=== PATIENT | female | born 1955 | race Caucasian/White ===

== ENCOUNTER 2020-09-24 08:56 | Day surgery (SDC) | payer MEDICARE ==
[2020-09-24] VITALS (9 sets, daily range): BP systolic 124–162; BP diastolic 78–98
[~2020-09-24] VITALS: Ht 177.8 cm; Wt 53.1 kg
[2020-09-24] MEDS ORDERED: normal saline 1000ml 1,000 ML IV SCH ×2 (09:35→12:20)
[2020-09-24] MEDS ORDERED: PANT40TA54 PO (09:40)
[2020-09-24] MEDS ORDERED: MORP-92 PO (09:40)
[2020-09-24] MEDS ORDERED: ONDA-103 PO (09:40)
[2020-09-24] MEDS ORDERED: PRAV40TA3 PO (09:40)
[2020-09-24] MEDS ORDERED: CITA20TA28 PO (09:40)
[2020-09-24] MEDS ORDERED: PROC10TA10 PO (09:40)
[2020-09-24] MEDS ORDERED: CALC250T2 PO (09:48)
[2020-09-24] MEDS ORDERED: NITR0.4T48 SL (09:48)
[2020-09-24] MEDS ORDERED: TRAZ-251 PO (09:48)
[2020-09-24] MEDS ORDERED: HYDR-3972 PO (09:48)
[2020-09-24] MEDS ORDERED: MV-M1TAB19 PO (09:48)
[2020-09-24] MEDS ORDERED: SENN-173 (09:48)
[2020-09-24] MEDS ORDERED: ASPI-1265 PO (09:48)
[2020-09-24] MEDS ORDERED: TERI2.4P SUBCUT (09:48)
[2020-09-24 10:02] LABS: EOSINOPHILS # (AUTO) 0.1 X10'3 (0-0.9); EOSINOPHILS % (AUTO) 1.1 % (0-6); HEMATOCRIT 39.2 % (35.0-45.0); LYMPHOCYTES # (AUTO) 0.9 X10'3 (1.1-4.8); LYMPHOCYTES % (AUTO) 17.8 % (21-51); MEAN CORPUSCULAR HEMOGLOBIN 31.1 PG (27.0-31.0); MEAN CORPUSCULAR HGB CONC 33.2 g/dL (33.0-36.5); MEAN CORPUSCULAR VOLUME 93.8 FL (78-98); MEAN PLATELET VOLUME 8.8 FL (7.4-10.4); MONOCYTES # (AUTO) 0.3 X10'3 (0-0.9); MONOCYTES % (AUTO) 6.8 % (2-12); NEUTROPHILS # (AUTO) 3.5 X10'3 (1.8-7.7); NEUTROPHILS % (AUTO) 73.3 % (42-75); PLATELET COUNT 173 X10'3 (140-440); RED BLOOD COUNT 4.18 X10'6 (4.20-5.60); RED CELL DISTRIBUTION WIDTH 13.3 % (11.5-14.5); WHITE BLOOD COUNT 4.8 X10'3 (4.5-11.0)
[2020-09-24] MEDS ORDERED: LIDOcaine 1%/PF 5ML 10 MG/ML VIAL ONE (10:53)
[2020-09-24] MEDS ORDERED: iohexol 300 MG/1 ML 50ml polymer ONE (10:53)
[2020-09-24] MEDS ORDERED: clindamycin-Cleocin 900mg/D5W 50 ML IV ONE (10:56)
[2020-09-24] MEDS ORDERED: midazolam 1 mg/ML 2ml injection ONE ×3 (10:57→11:38)
[2020-09-24] MEDS ORDERED: diphenhydrAMINE 50 mg/ml inj ONE (10:57)
[2020-09-24] MEDS ORDERED: fentaNYL/PF 50MCG/1 ML 2ML syringe ONE ×4 (10:57→11:54)
[2020-09-24] MEDS ORDERED: morphine 4 MG/ML inj SYRINge IV PRN (12:20)
[2020-09-24] MEDS ORDERED: HYDROcodone/acetaminophen 5mg/325mg tablet PO PRN (12:20)
--- NOTE | 2020-09-24 17:11 | NUR ---
Patient was a 6/10 throughout the rest of the day, she stated she was good on pain, no pain meds requested as she stated 10/10 is normal, feels better with 6/10 resting.
== END 2020-09-24 16:35 | disposition home or self-care (01) ==
LOC: SSTAY O 08:56
PROVIDERS: ATTEND Radiology Diagnostic Radiology
DX: M80.88XA Other osteoporosis with current pathological fracture, vertebra(e), initial encounter for fracture (principal); M54.6 Pain in thoracic spine; Z72.0 Tobacco use; Z85.3 Personal history of malignant neoplasm of breast
CPT/HCPCS: 22513; 36415; 85025; 85610; 99152; 99153; C1713; J1200; J2250; J3010; Q9967; J3490

== ENCOUNTER 2022-06-20 05:36 | Day surgery (SDC) | payer MEDICARE ==
[2022-06-11 15:54] LABS: CLARITY,URINE CLEAR (Clear); COLOR,URINE YELLOW (Yellow); GLUCOSE, URINE NEGATIVE (Neg); KETONES,URINE NEGATIVE (Neg); LEUKOCYTE ESTERASE ,URINE NEGATIVE (Neg); NITRITES, URINE NEGATIVE (Neg); OCCULT BLOOD,URINE SMALL (Neg); PROTEIN,URINE NEGATIVE (Neg); UROBILINOGEN,URINE 0.2 E.U/dL (0.2-1.0)
[2022-06-11 15:58] LABS: BASOPHILS % (AUTO) 0.6 % (0-1); EOSINOPHILS # (AUTO) 0.1 X10'3 (0-0.9); EOSINOPHILS % (AUTO) 0.8 % (0-6); LYMPHOCYTES # (AUTO) 1.2 X10'3 (1.1-4.8); LYMPHOCYTES % (AUTO) 19.2 % (21-51); MEAN CORPUSCULAR HEMOGLOBIN 31.9 PG (27.0-31.0); MEAN CORPUSCULAR HGB CONC 33.9 g/dL (33.0-36.5); MEAN CORPUSCULAR VOLUME 94.3 FL (78-98); MEAN PLATELET VOLUME 8.3 FL (7.4-10.4); MONOCYTES # (AUTO) 0.3 X10'3 (0-0.9); MONOCYTES % (AUTO) 5.3 % (2-12); NEUTROPHILS # (AUTO) 4.7 X10'3 (1.8-7.7); NEUTROPHILS % (AUTO) 74.1 % (42-75); PRE OP HEMATOCRIT 38.2 % (35.0-45.0); PRE OP HEMOGLOBIN 12.9 g/dL (12.0-16.0); PRE OP PLATELET COUNT 134 X10'3 (140-440); RED BLOOD COUNT 4.05 X10'6 (4.20-5.60); RED CELL DISTRIBUTION WIDTH 13.7 % (11.5-14.5)
[2022-06-11 16:03] LABS: UA COLLECTION TYPE NON-SPECIFIED
[2022-06-11 16:04] LABS: BACTERIA,URINE FEW /HPF (Neg); RBC,URINE 0-2 /HPF (0-2); SQUAMOUS EPITHELIAL CELL,UR FEW /LPF (FEW); WBC,URINE NONE SEEN /HPF (0-4)
[2022-06-11 16:13] LABS: ALBUMIN 3.6 G/DL (3.4-5.0); ALBUMIN/GLOBULIN RATIO 1.4 (1.1-1.5); ALKALINE PHOSPHATASE 83 IU/L (46-116); BLOOD UREA NITROGEN 12 MG/DL (7-18); BUN/CREATININE RATIO 16.4 (6.6-38.0); CHLORIDE 100 MMOL/L (99-107); CREATININE 0.73 MG/DL (0.40-0.90); PRE OP ALT 17 U/L (30-65); PRE OP ANION GAP 7 (8-16); PRE OP AST 20 U/L (10-37); PRE OP BILIRUB, TOTAL 0.3 MG/DL (0.0-1.0); PRE OP GLUCOSE 78 MG/DL (70-104); PRE OP POTASSIUM 3.6 MMOL/L (3.4-5.1); PRE OP SODIUM 137 MMOL/L (135-145); TOTAL CARBON DIOXIDE 30.1 MMOL/L (24-32); TOTAL PROTEIN 6.2 G/DL (6.4-8.2); eGFR 79 ML/MIN
[~2022-06-20] VITALS: Ht 167.6 cm; Wt 44.1 kg
[2022-06-20] VITALS (7 sets, daily range): BP systolic 128–164; BP diastolic 81–96
[~2022-06-20 05:36] MED LIST: ASPI-1265 PO; CALC250T2 PO; CITA20TA28 PO; HYDR-3972 PO; MORP-92 PO; MV-M1TAB19 PO; NITR0.4T48 SL; ONDA-103 PO; PANT40TA54 PO; PRAV40TA3 PO; PROC10TA10 PO; SENN-173; SENN-25 PO; TRAZ-251 PO; VIT1CAPS46 PO; famotidine 20mg tablet PO ONE; ringers solution, lacted 1,000 ML IV SCH; vancomycin/NS 1 GM in NS 250 ML IV ONE
[2022-06-20] MEDS ORDERED: bacitracin 15gm ointment TP ONE ×2 (06:14→07:37)
[2022-06-20] MEDS ORDERED: BUPIVAcaine 0.5% inj/PF 30 ML ONE (06:14)
[2022-06-20] MEDS ORDERED: midazolam 1 mg/ML 2ml injection ONE (07:11)
[2022-06-20] MEDS ORDERED: fentaNYL/PF 50MCG/1 ML 2ML syringe ONE (07:11)
[2022-06-20] MEDS ORDERED: propofol inj 20 ML IV ONE (07:14)
[2022-06-20] MEDS ORDERED: ondansetron/PF 4mg/2ml inj IV PRN (07:25)
[2022-06-20] MEDS ORDERED: ringers solution, lacted 1,000 ML IV SCH (07:25)
[2022-06-20] MEDS ORDERED: morphine 2 MG/ML inj. syringe IV PRN (07:25)
[2022-06-20] MEDS ORDERED: meperidine/PF 25mg/ml syringe IV PRN ×3 (07:25)
[2022-06-20] MEDS ORDERED: morphine 4 MG/ML inj SYRINge IV PRN (07:25)
[2022-06-20] MEDS ORDERED: proCHLORperazine 10 MG/2 ml inj IV PRN (07:25)
[2022-06-20] MEDS ORDERED: ondansetron/PF 4mg/2ml inj ONE (07:33)
[2022-06-20] MEDS ORDERED: dexamethasone sod phosphate 4mg/ml inj. ONE (07:33)
[2022-06-20] MEDS ORDERED: BUPIVAcaine 0.5% inj/PF 30 ml vial IJ ONE (07:37)
--- NOTE | 2022-06-20 07:56 | NUR ---
Received from OR via [facility] , accompanied by Anesthesiologist MARY CARMEN and report given by Anesthesiolgist. PATIENT WITH 20G PIV IN LEFT UE RUNNING LR AT 100. DENIES PAIN. LEFT 20GPIV IN PLACE RUNNING LR AT 100. DENIES PAIN. PATIENT WITH + CAP REFILL TO TOES. Addendum: 06/20/22 at 0808 by Matthew Santos RN, RN Amended: Links added.
--- NOTE | 2022-06-20 08:36 | NUR ---
PATIENT A&OX4, DENIES PAIN, V/S WNL, SCD OFF,, RIGHT FOOTDRESSING CDI W/ POST OP SHOE. ICE AND ELEVATED RUE. I HAVE REVIEWED D/C INSTRUCTIONS WITH PATIENT and they have verbalized understanding patient d/c home with all belongings and family gave transport home. Addendum: 06/20/22 at 0844 by Matthew Santos RN, RN Amended: Links added.
== END 2022-06-20 08:36 | disposition home or self-care (01) ==
LOC: PAS 05:36
PROVIDERS: ATTEND Podiatrist Foot & Ankle Surgery
DX: M79.89 Other specified soft tissue disorders (principal); F17.200 Nicotine dependence, unspecified, uncomplicated; Z88.1 Allergy status to other antibiotic agents; Z88.2 Allergy status to sulfonamides; Z79.82 Long term (current) use of aspirin; Z79.899 Other long term (current) drug therapy; Z98.890 Other specified postprocedural states; Z90.49 Acquired absence of other specified parts of digestive tract; Z88.8 Allergy status to other drugs, medicaments and biological substances; K21.9 Gastro-esophageal reflux disease without esophagitis; M81.8 Other osteoporosis without current pathological fracture
CPT/HCPCS: 28043; 36415; 80053; 81001; 82948; 85025; 93005; A6223; J1100; J2250; J2405; J2704; J3010; J3370; J7030; J7120; S0020; Z7506; Z7512; A4618; A6449; A7000